=== PATIENT | female | born 1960 | race Caucasian/White ===

== ENCOUNTER 2020-02-08 09:09 | Emergency (ER) | payer MEDICARE, OTHER ==
[~2020-02-08] VITALS: Ht 162.6 cm; Wt 54.4 kg
--- NOTE | 2020-02-08 09:09 | NUR ---
Patient BIBA ALS, transferred to bed 11. RN evaluating patient at bedside.
[2020-02-08 09:15] VITALS: BP 98/59
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
--- NOTE | 2020-02-08 09:58 | NUR ---
XRAY IS AT BEDSIDE.
[2020-02-08 10:02] LABS: BASOPHILS # (AUTO) 0.1 K/uL (0.00-0.22); EOSINOPHILS % (AUTO) 0.5 % (0.0-4.0); HEMATOCRIT 42.6 % (36-48); LYMPHOCYTES # (AUTO) 1.3 K/uL (2.5-16.5); LYMPHOCYTES % (AUTO) 24.6 % (20.5-51.1); MEAN CORPUSCULAR HEMOGLOBIN 32 pg (27-31); MEAN CORPUSCULAR HGB CONC 33 g/dL (33-37); MEAN CORPUSCULAR VOLUME 96.3 fL (80-94); MONOCYTES # (AUTO) 0.6 K/uL (0.8-1.0); NEUTROPHILS # (AUTO) 3.3 K/uL (1.8-7.7); NEUTROPHILS % (AUTO) 61.9 % (42.2-75.2); PLATELET COUNT (AUTO) 228 K/uL (140-450); RED BLOOD CELL COUNT(AUTO) 4.42 MIL/uL (4.20-5.40); RED CELL DISTRIBUTION WIDTH 13.6 % (11.6-13.7); WHITE BLOOD COUNT (AUTO) 5.3 K/uL (4.8-10.8)
[2020-02-08 10:37] LABS: APPEARANCE,URINE CLEAR (CLEAR); BLOOD, URINE NEGATIVE (NEGATIVE); COLOR,URINE YELLOW (YELLOW); UGLUCOSE NEGATIVE (NEGATIVE)
[2020-02-08 10:38] LABS: BILIRUBIN,URINE NEGATIVE (NEGATIVE); LEUKOCYTE ESTERASE ,URINE NEGATIVE (NEGATIVE); NITRITE, URINE NEGATIVE (NEGATIVE)
--- NOTE | 2020-02-08 11:05 | NUR ---
Pt is resting in the bed and states she is feeling better.
[2020-02-08 11:08] LABS: CARBON DIOXIDE 27.3 mmol/L (21-32); POTASSIUM 4.3 mmol/L (3.5-5.1)
[2020-02-08 11:13] LABS: ALBUMIN 3.2 g/dL (3.4-5.0); TOTAL BILIRUBIN 0.4 mg/dL (0.0-1.0)
--- NOTE | 2020-02-08 11:32 | NUR ---
UPON TRIAGE PT IS HAVING SHAKINGS ON UPPER AND LOWER EXTREMITIES. BG 76, AND DR. MERCEDES NOTIFIED. JUICE AND CRACKERS GIVEN TO PT.
--- NOTE | 2020-02-08 11:32 | NUR ---
DR. MERCEDES IS EVALUATING PT AT BEDSIDE.
[2020-02-08 11:34] VITALS: BP 119/59
--- NOTE | 2020-02-08 11:34 | NUR ---
PT IS EATING AND DRINKING AT THIS TIME AND STATES SHE FEELS BETTER. Patient discharged with v/s stable. Written and verbal after care instructions given and explained. Patient verbalized understanding. Ambulatory with steady gait. All questions addressed prior to discharge. Advised to follow up with PMD.
== END 2020-02-08 11:34 | disposition home or self-care (01) ==
LOC: MED 09:09
DX: R55 Syncope and collapse (principal); E03.9 Hypothyroidism, unspecified
CPT/HCPCS: 36415; 71045; 80053; 81003; 82948; 84484; 85025; 93005; 99285; Q0092